=== PATIENT | female | born 1955 | race Caucasian/White ===

== ENCOUNTER 2024-03-08 10:36 | Emergency (ER) | payer MEDICARE, OTHER, SELFPAY ==
[2024-03-08 10:41] VITALS: BP 156/99
--- NOTE | 2024-03-08 11:23 | ED.GENMED ---
History of Present Illness
General
Chief Complaint: Back Pain
Time Seen by Provider: 03/08/24 11:01
History of Present Illness
History of Present Illness:
68-year-old female presents to the emergency department for evaluation of bilateral flank pain ongoing for the past week. She was seen initially after the onset of pain by her primary care physician who gave her a course of prednisone. Since that
time she has had increased left upper quadrant pain as well as worsening back pain. Prior history of infected kidney stone and she is concerned that the stone is causing her current symptoms. No vomiting or diarrhea.
Past History
Past History
ED Past Medical History: GERD, HTN, Hypercholesterolemia and Other (Kidney stone)
ED Past Surgical History: Urological
Social History
Tobacco: Non-smoker
Alcohol: Occasional
Drug: None
Review of Systems
Review of Systems
Allergies reviewed?: Yes
All Other Systems: ROS reviewed and negative except as documented in HPI and ROS
Phy Exam
Physical Exam
Physical Exam:
GEN: Well appearing, NAD, WDWN
HEENT: Oral mucosa moist, no scleral icterus
Cardiac: Regular rate and rhythm, no murmurs
Lung: No respiratory distress, no tachypnea
Abdomen: Soft, mild left upper quadrant abdominal tenderness, no rigidity, no CVA tenderness bilaterally
MSK: No gross deformity or injuries
Skin: Good color, no pallor or jaundice, no rashes
Neuro: AO x3, moves all extremities freely
Psych: Calm, cooperative
Course
Orders/Labs/Results
Orders:
Orders
03/08/24 11:46
Complete Blood Count/With Diff Urgent
Comprehensive Metabolic Panel Urgent
Urinalysis Reflex To Culture Urgent
Date Specimen was Collected: 03/08/24
Time Specimen was Collected: 11:25
Urine Microscopic Reflex Cult Urgent
Urine Culture Urgent
MILES Source: U
Specimen Description:
Date Specimen was Collected: 03/08/24
Time Specimen was Collected: 11:25
03/08/24 12:52
CT Abd/pel Without Iv Or Oral Urgent
Comment:
Reason For Exam: BL flank pain, hematuria
Abnormal Lab Results
03/08/24
11:46
MPV 10.8 H fL
(7.4-10.4)
Abs Immat Gran (auto) 0.1 H 10^3/uL
(0-0.05)
Immature Gran % 0.9 H %
(0-0.5)
BUN 22 H mg/dl
(7-17)
Leukocyte Esterase Rfl 1+ A
(Negative)
Urine RBC 3-6 A /HPF
(0-2)
Urine Bacteria (Reflex) Few A
(Negative)
03/08/24 11:46
03/08/24 11:46
Vital Signs
Initial and Last Documented VS:
Initial Vital Signs
Temp Pulse Resp BP Pulse Ox
98.9 F 86 18 156/99 99
03/08/24 10:41 03/08/24 10:41 03/08/24 10:41 03/08/24 10:41 03/08/24 10:41
Last Documented Vital Signs
Temp Pulse Resp BP Pulse Ox
98.9 F 81 18 137/87 99
03/08/24 10:41 03/08/24 14:05 03/08/24 14:05 03/08/24 14:05 03/08/24 10:41
MDM/Problems Addressed
MDM/Problems Addressed:
Pain is likely musculoskeletal in nature, imaging is unremarkable. Discussed supportive care
*Critical Care Note
Total Time (30-74mins, 75-104mins- exclusive of procedures): Not Applicable
ED Attending Note
-
Portions of this chart may have been created with voice recognition software.� Occasional wrong word or��sound alike� substitutions may have occurred due to the inherent limitations of voice recognition software.
Discharge Plan
Departure
Patient Disposition: Home (Routine Discharge)
Date of Disposition: 03/08/24
Time of Disposition: 14:02
Patient with high blood pressure during this ER visit?: No
Discharge Problem:
Acute upper abdominal pain, Bilateral flank pain
Instructions: Upper Back Pain (DC)
Prescriptions:
New
pantoprazole [Protonix] 40 mg tablet,delayed release (DR/EC)
40 mg PO BID 10 Days Qty: 20 0RF
No Action
lorazepam 0.5 MG tablet
0.25 mg PO HSPRN PRN (Reason: ANXIETY)
lisinopril-hydrochlorothiazide 1 EACH tablet
1 ea PO DAILY
Patient Comments:
10/12.5mg
ascorbic acid (vitamin C) [Vitamin C] 500 MG tablet
1,000 mg PO DAILY
omeprazole 20 MG capsule,delayed release(DR/EC)
20 mg PO DAILY
magnesium 200 MG tablet
200 mg PO DAILY
fish oil-dha-epa 1 EACH capsule
1 ea PO DAILY
cholecalciferol (vitamin D3) 2,000 UNITS tablet
2,000 units PO DAILY
vitamin E (dl, acetate) 400 UNITS capsule
400 units PO DAILY
jbxcwmyk-ombf-QF-calcium-mins [Women's Daily Formula] 1 EACH tablet
1 ea PO DAILY
L.acidoph,paracasei,B.animalis 1 EACH capsule
1 cap PO DAILY
biotin 5,000 MCG tablet, sublingual
5,000 mcg sublingual DAILY
Beta-Carotene 7,500 MCG Capsule
7,500 mcg PO DAILY
Cranberry 4,200 MG Capsule
4,200 mg PO DAILY
Turmeric 1 CAPSULE Capsule
1 cap PO DAILY
oxycodone 5 MG tablet
5 mg PO Q4HPRN PRN (Reason: pain not relieved by ibuprofen) Qty: 15 0RF
ibuprofen 200 MG tablet
400 - 600 mg PO QIDPRN PRN (Reason: pain) Qty: 1 0RF
acetaminophen [Tylenol] 325 MG capsule
650 mg PO Q4HPRN PRN (Reason: pain) Qty: 1 0RF
Referrals:
Dalila Escobar CRNP [Family Provider] -
Activity Restrictions/Additional Instructions:
Take the protonix twice per day for 1 week. Stop your omeprazole during this time
Follow up with your primary care physician if symptoms persist
Interventions
Interventions:
*Risk Screen - Suicide Last Done: 03/08/24 10:41
*General Assessment Last Done: 03/08/24 10:41
*Neglect/Abuse Screening Last Done: 03/08/24 10:41
*Nursing Disposition Last Done: 03/08/24 14:09
ED-Musculoskeletal Assessment Last Done: 03/08/24 11:45
Discharge Date and Time
Discharge Date/Time: 03/08/24 14:15
Print Language: BELARUSIAN
[2024-03-08 11:54] LABS: Urine Albumin Negative (Neg - Trace); Urine Bilirubin Negative (Negative); Urine Character Clear (Clear); Urine Color Yellow; Urine Glucose Negative (Negative); Urine Ketone Negative (Negative); Urine Leukocyte 1+ (Negative); Urine Nitrite Negative (Negative); Urine Occult Blood Negative (Negative); Urine Urobilinogen Negative (Neg - 1+)
[2024-03-08 11:56] LABS: % Basophils 0.4 % (0-2); % Eosinophils 2.4 % (0-6); % Immature Granulocytes 0.9 % (0-0.5); % Lymphocytes 25.4 % (20.5-51.1); % Monocytes 6.7 % (1.7-9.3); % Neutrophils 64.2 % (42.2-75.2); Absolute Eosinophils 0.2 10^3/uL (0-0.7); Absolute Immature Granulocytes 0.1 10^3/uL (0-0.05); Absolute Monocytes 0.5 10^3/uL (0.1-0.6); Hemoglobin 14.7 g/dL (12.0-16.0); Mean Corp Hgb Conc. 34.2 g/dL (33.0-37.0); Mean Corpuscular Hgb 30.7 pg (27.0-31.0); Mean Corpuscular Volume 89.8 fL (81.0-99.0); Mean Platelet Volume 10.8 fL (7.4-10.4); Nucleated Red Blood Cells % 0 %; Platelet Count 219 10^3/uL (130-400); Red Blood Cell Count 4.79 10^6/uL (4.20-5.40); White Blood Cell Count 7.8 10^3/uL (4.8-10.8)
[2024-03-08 12:07] LABS: ALT (SGPT) 34 U/L (0-35); AST (SGOT) 27 U/L (14-36); Albumin 4.5 g/dl (3.5-5.0); Alkaline Phosphatase 88 U/L (38-126); Blood Urea Nitrogen 22 mg/dl (7-17); Calcium 9.7 mg/dl (8.4-10.2); Carbon Dioxide 29 mmol/L (22-30); Chloride 101 mmol/L (98-107); Glucose 91 mg/dl (70-99); Potassium 3.7 mmol/L (3.5-5.1); Sodium 138 mmol/L (135-145); Total Bilirubin 0.4 mg/dl (0.2-1.3); eGFR > 60.00
[2024-03-08 12:13] LABS: Urine Squamous Cell 0-2 /LPF (Few)
[2024-03-08 12:14] LABS: Urine Bacteria Few (Negative)
[2024-03-08 14:05] VITALS: BP 137/87
== END 2024-03-08 14:15 | disposition home or self-care (01) ==
LOC: EMR 10:36
PROVIDERS: Physician Assistant; EMERGENCY PHYSICIAN Emergency Medicine; FAMILY PHYSICIAN Nurse Practitioner
DX: R10.10 Upper abdominal pain, unspecified (principal); M54.9 Dorsalgia, unspecified; I10 Essential (primary) hypertension; K21.9 Gastro-esophageal reflux disease without esophagitis; E78.00 Pure hypercholesterolemia, unspecified; Z87.442 Personal history of urinary calculi
CPT/HCPCS: 99284; 74176; 80053; 81003; 81015; 85025; 87077; 87086